=== PATIENT | male | born 1980 | race Caucasian/White ===

== ENCOUNTER → 2023-12-09 | Outpatient (CLI) | payer BC ==
--- NOTE | 2023-12-09 10:48 | CA ---
Stress Echo Report Grady Torres Age: 43 Gender: M : 1980 Exam Date: 12/09/2023 09:21 Exam Location: [facility] Stress Ht (in): 73 Wt (lb): 195 Ordering Physician: Cesar Whitmore DO ([email or web address]) Referring Physician: Cesar Whitmore DO ([email or web address]) Tool Filer Hand: Madhu Myles Technologist Procedure CPT: Indication: Bradycardia ICD-9 Codes: Rhythm: Patient History: Cardiac Medications: NONE Medications in past 24 hours: Contrast: N/A Stress Results Protocol: Rajendra Total dose(mL): NA Exercise Duration (min:sec): 12:[address] Depression (mm): Angina Score: Bland Score: METS: 12.3 Resting HR: 64 Resting BP: 131 / 91 Peak HR: 159 Peak BP: 216 / 76 Max Predicted HR: 175 91 % Max Predicted HR Target HR: 149 Double Product: 39451 Stress Summary: BP Response: Reason for Termination: Reached target heart rate or work-load Cardiac Symptoms: NO SYMPTOMS ECG Analysis Resting ECG: Normal sinus rhythm normal axis normal intervals Stress ECG: Exercised on Rajendra protocol for12 f minutes achieving 85% at maximal heart rate without chest pain or diagnostic ST segment depression Arrhythmia: Echo Analysis Resting Echo: Mildly dilated left ventricle with normal function and wall motion Peak Echo Analysis: Normal hyperdynamic response MEASUREMENTS (Male/Female) Normal Values CONCLUSIONS Excellent exercise tolerance Negative stress test by EKG criteria Negative stress echo Dr. Mack Briceño MD (Electronically Signed) Final Date: 09 December 2023 10:47
== END | disposition home or self-care (01) ==
LOC: RADNMMAIN 08:52
PROVIDERS: ATTEND Internal Medicine
DX: R00.1 Bradycardia, unspecified
CPT/HCPCS: 93351